=== PATIENT | female | born 1960 | race Caucasian/White ===

== ENCOUNTER 2016-04-13 06:48 | Day surgery (SDC) | payer MEDICAID ==
[2016-04-12 15:28] LABS: HEMATOCRIT 42.5 % (36.0-48.0); HEMOGLOBIN 14.5 g/dL (12-16); MCHC 34.1 g/dL (31.0-37.0); MCV 90.8 fL (80.0-100.0); MEAN PLATELET VOLUME 10.4 fL (7.4-10.4); RBC 4.68 10x6/uL (4.00-5.40); RDW 12.5 % (11.5-14.5); WBC 6.2 10x3/uL (4.8-10.8)
[~2016-04-13] VITALS: Ht 157.5 cm; Wt 63.5 kg
[~2016-04-13 06:48] MED LIST: ESTROBLEND PO; FLINTSTONE1 TAB.CHEW PO; HYDROCODONE-APA1 TAB PO; PRINIVIL10 MG PO
[2016-04-13 07:15] VITALS: BP 138/74; Ht 157.5 cm; Wt 63.5 kg
[2016-04-13] MEDS ORDERED: DEMEROL50 MG PO (09:24)
--- NOTE | 2016-04-13 13:09 | NUR ---
1245 DISCHARGE INSTRUCTIONS REVIEWED WITH PATIENT PER S LIAM RN; VERBALIZED UNDERSTANDING
--- NOTE | 2016-04-24 18:23 | OP ---
PATIENT NAME: MEHUL LOCKE MEDICAL RECORD: [id number] :56 LOCATION:[facility] ADMISSION DATE: SURGEON: DELPHINE KAPOOR MD DATE OF OPERATION: 04/13/2016 PREOPERATIVE DIAGNOSES: 1. 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 2. Carpal tunnel syndrome. POSTOPERATIVE DIAGNOSES: 1. 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 2. Carpal tunnel syndrome. PROCEDURE: 1. Extensor retinacular repair around Iraj's tubercle, left wrist. 2. Carpal tunnel release. SURGEON: Delphine Kapoor MD. ANESTHESIA: General. INTRAOPERATIVE COMPLICATIONS: None. SUMMARY OF PATHOLOGIC FINDINGS: Extensor retinaculum holding the extensor pollicis longus in place was torn from its attachment around Iraj's tubercle required reconstruction soft, as the retinacular tissue was robust and allowed for primary repair. The patient had a very tight transverse carpal ligament consistent with diagnosis of carpal tunnel syndrome. OPERATIVE SUMMARY IN DETAIL: After obtaining the appropriate preoperative orthopedic surgery consents as well as anesthetic consultation, the patient was taken to operating room and placed on the operating table in supine position. After general laryngeal mask was administered, tourniquet was placed about the proximal aspect of the left upper extremity. Left upper extremity was then prepped and draped in routine sterile fashion. The arm was elevated and exsanguinated, tourniquet inflated to 250 mmHg. Attention was first turned to the retinacular repair. Excision was made between the greater tuberosity and Iraj's tubercle, dissected down the tendon that was subluxing was found evaluated, mobilized, and then the extensor retinaculum was mobilized. A dorsal clifford was brought over to the tendon to the ulnar aspect of Iraj's tubercle, which was deepened and reapproximated on the radial side of the tendon holding it in place. This was done with 0 FiberWire. Having completed putting several FiberWire sutures in to stabilize the tendon, the wound was irrigated and closed with 4-0 Prolene. Attention then turned to the carpal tunnel. Midpalmar crease was used. Incision was taken down to the distal aspect, transverse carpal ligament was seen and incised in its entirety under direct visualization using a freer elevator to protect the median nerve. Having completed this, the wound was irrigated and closed with 4-0 Prolene in a combination of simple mattress fashion. Sterile dressings were applied. A thumb spica splint was applied. After the tourniquet was taken down, patient was awakened and taken to the recovery room in stable condition. All final needle and sponge counts were correct. TRANSINT:[id number] Voice Confirmation ID: [id number] DOCUMENT ID: [id number] OPERATIVE REPORT [id number] MEHUL LOCKE MD, DELPHINE HERNANDEZ at 1823 CC: [id number] DICTATION DATE: 04/13/16 0927 DISABILITY REPRESENTATIVE: 04/13/16 1021 [facility] 04/13/16 [facility] [address] [place] [address]
== END 2016-04-13 13:00 | disposition home or self-care (01) ==
LOC: D.OPS 06:48 → D.PAN 08:30 → D.OPS 09:50 → D.PAN 12:15 → D.OPS 13:00
PROVIDERS: Anesthesiology
DX: S66.812A Strain of other specified muscles, fascia and tendons at wrist and hand level, left hand, initial encounter (principal); G56.02 Carpal tunnel syndrome, left upper limb